=== PATIENT | female | born 1995 | race Caucasian/White ===

== ENCOUNTER 2017-02-10 19:41 | Emergency (ER) | payer BC ==
[~2017-02-10] VITALS: Ht 172.7 cm; Wt 124.1 kg
[~2017-02-10 19:41] MED LIST: CEFTIN 250250 MG/TAB PO; CIPRO 250MG TA250 MG PO; CIPRO 500MG TA500 MG PO; LEVAQUIN 250MG250 MG PO; LEXAPRO 5MG5 MG; LORTAB 5/500 501 TAB PO; MACROBID 1100 MG/CAP PO; MELATONIN5 M1 SL; MERIBIN5 MG; NO HOME MEDICATIONS; NORCO 325 MG-51 TAB PO; OMNICEF 300MG300 MG PO; PERCOCET 325 MG1 TA2 PO; PHENERGAN 25 TA25 MG PO; PHENERGAN25 MG RC; PYRIDIUM 100MG100 MG; PYRIDIUM200 M1 PO; RAPAFLO4 MG PO; TOPAMAX 25MG25 M1 PO; VOLTAREN 75 DR75 MG PO; YASMIN 3 MG-0.01 TAB PO; ZOFRAN ODT4 MG PO; ZOLOFT 50MG50 MG PO
[2017-02-10 19:43] VITALS: TEMP 98
[2017-02-10 20:26] LABS: BASO # 0.1 (0.0-0.2); BASO % 0.8 % (0.0-2.0); EOS # 0.1 (0.0-0.7); EOS % 1.8 % (0-4.0); GRAN # 4.4 (1.4-6.5); GRAN % 56.9 % (42.2-75.2); HEMATOCRIT 46.9 % (37.0-47.0); HEMOGLOBIN 15.6 g/dl (12.5-16.0); LYMPH # 2.5 (1.2-3.4); LYMPH % 33.1 % (20.0-51.0); MEAN CELL VOLUME 96 fl (80.0-100.0); MEAN CORPUSCULAR HEMOGLOBIN 32 pg (27.0-31.0); MEAN CORPUSCULAR HGB CONC 33 g/dl (33.0-37.0); MONO # 0.5 (0.1-0.6); MONO % 7.1 % (1.7-9.3); PLATELET COUNT 208 K/mm3 (130-400); RED BLOOD COUNT 4.87 M/mm3 (4.10-5.30); REDCELL DISTRIBUTION WIDTH-CV 12.4 % (11.5-14.5); WHITE BLOOD COUNT 7.6 K/mm3 (4.8-10.8)
[2017-02-10 20:29] LABS: PH 6 (5-8); URINE APPEARANCE Clear; URINE BACTERIA Rare /hpf; URINE BILIRUBIN Negative (NEGATIVE); URINE BLOOD 3+ (NEGATIVE); URINE COLOR Straw; URINE GLUCOSE Negative (NEGATIVE); URINE KETONE Negative (NEGATIVE); URINE RBC None Seen /hpf; URINE UROBILINOGEN Negative (NEGATIVE)
[2017-02-10 20:35] LABS: ADJUSTED CALCIUM 8.9 mg/dL (8.4-10.2); ALBUMIN 4.9 gm/dL (3.5-5.0); BILIRUBIN,TOTAL 0.9 mg/dL (0.0-1.0); CALCIUM 9.6 mg/dL (8.4-10.2); CREATININE, serum 0.59 mg/dL (0.52-1.25); POTASSIUM 3.4 mmol/L (3.4-5.0); TOTAL PROTEIN 7.9 gm/dL (6.4-8.2)
[2017-02-10] MEDS ORDERED: ZOFRAN 4MG T4 MG/TAB PO (21:41)
[2017-02-10] MEDS ORDERED: NORCO 325 MG-51 TAB PO (21:41)
[2017-02-10 22:28] VITALS: BP 102/71; PULSE 73
== END 2017-02-10 22:28 | disposition home or self-care (01) ==
LOC: COL.ER 19:41
PROVIDERS: Emergency Medicine
DX: N20.1 Calculus of ureter (principal); Z87.442 Personal history of urinary calculi
CPT/HCPCS: J1170; J1885; J2405; J7030

== ENCOUNTER 2017-02-13 16:02 | Emergency (ER) | payer BC ==
[~2017-02-13] VITALS: Ht 172.7 cm; Wt 124.1 kg
[~2017-02-13 16:02] MED LIST changes: +ZOFRAN 4MG T4 MG/TAB PO
[2017-02-13 16:04] VITALS: TEMP 97.9
[2017-02-13 16:39] LABS: BASO % 0.5 % (0.0-2.0); EOS # 0.2 (0.0-0.7); EOS % 2.2 % (0-4.0); GRAN # 4.5 (1.4-6.5); GRAN % 60.7 % (42.2-75.2); HEMATOCRIT 45.1 % (37.0-47.0); HEMOGLOBIN 15.5 g/dl (12.5-16.0); LYMPH # 2.2 (1.2-3.4); LYMPH % 29.6 % (20.0-51.0); MEAN CELL VOLUME 92 fl (80.0-100.0); MEAN CORPUSCULAR HEMOGLOBIN 32 pg (27.0-31.0); MEAN CORPUSCULAR HGB CONC 34 g/dl (33.0-37.0); MEAN PLATELET VOLUME 10.2 fl (7.4-10.4); MONO # 0.5 (0.1-0.6); MONO % 6.7 % (1.7-9.3); PLATELET COUNT 225 K/mm3 (130-400); RED BLOOD COUNT 4.88 M/mm3 (4.10-5.30); REDCELL DISTRIBUTION WIDTH-CV 12.3 % (11.5-14.5); WHITE BLOOD COUNT 7.4 K/mm3 (4.8-10.8)
[2017-02-13 16:52] LABS: ADJUSTED CALCIUM 9.2 mg/dL (8.4-10.2); ALBUMIN 4.8 gm/dL (3.5-5.0); BILIRUBIN,TOTAL 0.8 mg/dL (0.0-1.0); CALCIUM 9.8 mg/dL (8.4-10.2); CREATININE, serum 0.65 mg/dL (0.52-1.25); POTASSIUM 3.6 mmol/L (3.4-5.0); TOTAL PROTEIN 7.9 gm/dL (6.4-8.2)
[2017-02-13 17:26] LABS: PH 6 (5-8); URINE APPEARANCE Hazy; URINE BACTERIA Rare /hpf; URINE BILIRUBIN Negative (NEGATIVE); URINE BLOOD Negative (NEGATIVE); URINE COLOR Yellow; URINE GLUCOSE Negative (NEGATIVE); URINE KETONE Negative (NEGATIVE); URINE UROBILINOGEN Negative (NEGATIVE)
[2017-02-13 18:08] VITALS: BP 117/88; PULSE 64
[2017-02-13] MEDS ORDERED: CIPRO 500MG TA500 MG PO (18:16)
== END 2017-02-13 18:22 | disposition home or self-care (01) ==
LOC: COL.ER 16:02
PROVIDERS: Emergency Medicine
DX: N20.0 Calculus of kidney (principal); Z87.442 Personal history of urinary calculi; F17.210 Nicotine dependence, cigarettes, uncomplicated; N39.0 Urinary tract infection, site not specified
CPT/HCPCS: J2765; J3010; J7030

== ENCOUNTER → 2017-08-23 | Outpatient (CLI) | payer BC | LOC: COL.RAD 13:29 | DX: R22.1 Localized swelling, mass and lump, neck (principal) ==

== ENCOUNTER 2017-12-21 12:55 | Emergency (ER) | payer BC ==
[~2017-12-21] VITALS: Ht 172.7 cm; Wt 112.3 kg
[~2017-12-21 12:55] MED LIST changes: +00186-0372-20 IH; +DESYREL 50MG50 MG PO; +MILLIPRED DP5 MG; +PYRIDIUM 100MG100 MG PO; +TOPAMAX50 MG PO; +WELLBUTRIN XL150 MG PO; +ZARAH PO
[2017-12-21 13:02] VITALS: BP 131/80; PULSE 111; TEMP 96.8
[2017-12-21 14:06] LABS: COLLECTION METHOD CLEAN CATCH
[2017-12-21 14:15] LABS: MUCOUS Present /lpf; PH 6 (5-8); SQUAMOUS EPITHELIAL 20-50 /hpf; URINE APPEARANCE Cloudy; URINE BACTERIA None Seen /hpf; URINE BILIRUBIN Negative (NEGATIVE); URINE BLOOD 3+ (NEGATIVE); URINE COLOR Yellow; URINE GLUCOSE Negative (NEGATIVE); URINE KETONE Negative (NEGATIVE); URINE LEUKOCYTE ESTERASE Trace (NEGATIVE); URINE NITRATE Negative (NEGATIVE); URINE PROTEIN(semi-quant) 1+ (NEGATIVE); URINE RBC >50 /hpf
[2017-12-21] MEDS ORDERED: TORADOL 10MG TA10 MG PO (15:36)
[2017-12-21] MEDS ORDERED: CEFTIN500 MG PO (15:36)
== END 2017-12-21 15:51 | disposition home or self-care (01) ==
LOC: COL.ER 12:55
PROVIDERS: Nurse Practitioner
DX: N20.1 Calculus of ureter (principal); F32.9 Major depressive disorder, single episode, unspecified; F41.9 Anxiety disorder, unspecified; E28.2 Polycystic ovarian syndrome; Z87.442 Personal history of urinary calculi
CPT/HCPCS: J0696; J1885; J2270; J2405; J7030

== ENCOUNTER → 2018-01-13 | Outpatient (CLI) | payer BC ==
[~2018-01-13] MED LIST changes: +CEFTIN500 MG PO; +TORADOL 10MG TA10 MG PO
== END ==
LOC: COL.RAD 01-09 08:00
DX: N20.0 Calculus of kidney (principal)
CPT/HCPCS: Q9967

== ENCOUNTER → 2018-03-28 | Outpatient (CLI) | payer OTHER | LOC: COL.RAD 08:15 | DX: M23.92 Unspecified internal derangement of left knee (principal) ==

== ENCOUNTER 2018-08-19 15:36 | Emergency (ER) | payer BC ==
[~2018-08-19] VITALS: Ht 172.7 cm; Wt 100.0 kg
[2018-08-19 15:43] VITALS: TEMP 97.4
[2018-08-19] MEDS ORDERED: SYEDA 3 MG-0.031 TAB PO (15:55)
[2018-08-19] MEDS ORDERED: ZOLOFT 50MG50 MG PO (15:56)
[2018-08-19] MEDS ORDERED: ATIVAN 0.50.5 MG/TAB PO (15:56)
[2018-08-19] MEDS ORDERED: AMBIEN 5MG TABLE5 MG PO (15:56)
[2018-08-19] MEDS ORDERED: DOXYCYCLINE HY100 MG PO (15:56)
[2018-08-19] MEDS ORDERED: FIORICET 325 MG1 TA1 PO (16:03)
[2018-08-19 16:05] LABS: COLLECTION METHOD CLEAN CATCH
[2018-08-19 16:22] LABS: MUCOUS Present /lpf; PH 6 (5-8); URINE APPEARANCE Hazy; URINE BACTERIA Rare /hpf; URINE BILIRUBIN Negative (NEGATIVE); URINE BLOOD 3+ (NEGATIVE); URINE COLOR Yellow; URINE GLUCOSE Negative (NEGATIVE); URINE KETONE Negative (NEGATIVE); URINE LEUKOCYTE ESTERASE Negative (NEGATIVE); URINE NITRATE Negative (NEGATIVE); URINE PROTEIN(semi-quant) Negative (NEGATIVE); URINE UROBILINOGEN Negative (NEGATIVE)
[2018-08-19 16:35] LABS: BASO # 0.1 (0.0-0.2); BASO % 0.6 % (0.0-2.0); EOS # 0.3 (0.0-0.7); EOS % 3.2 % (0-4.0); GRAN # 5.4 (1.4-6.5); GRAN % 62.4 % (42.2-75.2); HEMATOCRIT 45.8 % (37.0-47.0); HEMOGLOBIN 15.4 g/dl (12.5-16.0); LYMPH # 2.3 (1.2-3.4); MEAN CELL VOLUME 95 fl (80.0-100.0); MEAN CORPUSCULAR HEMOGLOBIN 32 pg (27.0-31.0); MEAN CORPUSCULAR HGB CONC 34 g/dl (33.0-37.0); MEAN PLATELET VOLUME 9.9 fl (7.4-10.4); MONO # 0.6 (0.1-0.6); MONO % 6.5 % (1.7-9.3); PLATELET COUNT 253 K/mm3 (130-400); REDCELL DISTRIBUTION WIDTH-CV 12.4 % (11.5-14.5)
[2018-08-19 16:50] LABS: ALBUMIN 4.7 gm/dL (3.5-5.0); BILIRUBIN,TOTAL 0.3 mg/dL (0.0-1.0); C-REACTIVE PROTEIN 1.2 mg/dL (0.0-0.9); CALCIUM 9.9 mg/dL (8.4-10.2); CREATININE, serum 0.81 mg/dL (0.52-1.25); POTASSIUM 3.8 mmol/L (3.4-5.0)
[2018-08-19 18:11] VITALS: BP 141/78; PULSE 79
== END 2018-08-19 18:13 | disposition home or self-care (01) ==
LOC: COL.ER 15:36
PROVIDERS: Emergency Medicine
DX: R10.9 Unspecified abdominal pain (principal); F17.210 Nicotine dependence, cigarettes, uncomplicated; Z87.442 Personal history of urinary calculi
CPT/HCPCS: J1170; J1885; J2405; J7030; Q9967

== ENCOUNTER → 2018-09-12 | Outpatient (CLI) | payer BC ==
[~2018-09-12] MED LIST changes: +AMBIEN 5MG TABLE5 MG PO; +ATIVAN 0.50.5 MG/TAB PO; +DOXYCYCLINE HY100 MG PO; +FIORICET 325 MG1 TA1 PO; +SYEDA 3 MG-0.031 TAB PO
== END ==
LOC: COL.RAD 07:25
DX: M47.816 Spondylosis without myelopathy or radiculopathy, lumbar region (principal)

== ENCOUNTER 2018-12-07 22:32 | Emergency (ER) | payer BC ==
[~2018-12-07] VITALS: Ht 172.7 cm; Wt 100.0 kg
[2018-12-07 23:03] LABS: COLLECTION METHOD CLEAN CATCH
[2018-12-07 23:10] LABS: AMORPHOUS CRYSTAL Present /uL; MUCOUS Present /lpf; PH 7 (5-8); URINE APPEARANCE Turbid; URINE BACTERIA None Seen /hpf; URINE BILIRUBIN Negative (NEGATIVE); URINE BLOOD Negative (NEGATIVE); URINE COLOR Yellow; URINE GLUCOSE Negative (NEGATIVE); URINE KETONE Negative (NEGATIVE); URINE LEUKOCYTE ESTERASE Trace (NEGATIVE); URINE NITRATE Negative (NEGATIVE); URINE PROTEIN(semi-quant) Negative (NEGATIVE); URINE RBC 0-2 /hpf; URINE UROBILINOGEN Negative (NEGATIVE)
[2018-12-07 23:48] LABS: BASO # 0.1 (0.0-0.2); BASO % 0.7 % (0.0-2.0); EOS # 0.3 (0.0-0.7); EOS % 4.4 % (0-4.0); GRAN # 3.8 (1.4-6.5); GRAN % 53.7 % (42.2-75.2); HEMATOCRIT 43.6 % (37.0-47.0); HEMOGLOBIN 14.7 g/dl (12.5-16.0); LYMPH # 2.2 (1.2-3.4); MEAN CELL VOLUME 97 fl (80.0-100.0); MEAN CORPUSCULAR HEMOGLOBIN 33 pg (27.0-31.0); MEAN CORPUSCULAR HGB CONC 34 g/dl (33.0-37.0); MEAN PLATELET VOLUME 10.6 fl (7.4-10.4); MONO # 0.7 (0.1-0.6); MONO % 9.9 % (1.7-9.3); PLATELET COUNT 184 K/mm3 (130-400); RED BLOOD COUNT 4.49 M/mm3 (4.10-5.30); REDCELL DISTRIBUTION WIDTH-CV 12.1 % (11.5-14.5)
[2018-12-08] VITALS: TEMP 97.2
[2018-12-08] LABS: ALBUMIN 4.2 gm/dL (3.5-5.0); BILIRUBIN,TOTAL 0.3 mg/dL (0.0-1.0); CALCIUM 9.4 mg/dL (8.4-10.2); CREATININE, serum 0.68 mg/dL (0.52-1.25); POTASSIUM 3.8 mmol/L (3.4-5.0); TOTAL PROTEIN 7.2 gm/dL (6.4-8.2)
[2018-12-08 01:18] VITALS: BP 110/73; PULSE 67
== END 2018-12-08 01:21 | disposition home or self-care (01) ==
LOC: COL.ER 22:32
PROVIDERS: Emergency Medicine
DX: R10.9 Unspecified abdominal pain (principal); Z87.442 Personal history of urinary calculi
CPT/HCPCS: J1885; J2270; J2405; J7030; Q9967

== ENCOUNTER → 2019-06-23 | Outpatient (CLI) | payer BC | LOC: BHSO 10:54 | DX: F43.10 Post-traumatic stress disorder, unspecified (principal) ==

== ENCOUNTER → 2019-07-08 | Outpatient (CLI) | payer BC | LOC: BHSO 10:54 | DX: F43.10 Post-traumatic stress disorder, unspecified (principal) ==

== ENCOUNTER → 2019-07-15 | Outpatient (CLI) | payer BC | LOC: BHSO 10:05 | DX: F41.1 Generalized anxiety disorder (principal) ==

== ENCOUNTER → 2019-08-12 | Outpatient (CLI) | payer BC | LOC: BHSO 10:52 | DX: F41.1 Generalized anxiety disorder (principal) ==

== ENCOUNTER 2019-10-15 17:02 | Emergency (ER) | payer SELFPAY ==
[~2019-10-15] VITALS: Ht 172.7 cm; Wt 95.5 kg
[2019-10-15 17:11] VITALS: TEMP 97.5
[2019-10-15 17:47] LABS: COLLECTION METHOD CLEAN CATCH
[2019-10-15 17:58] LABS: MUCOUS Present /lpf; PH 6 (5-8); SQUAMOUS EPITHELIAL 20-50 /hpf; URINE APPEARANCE Cloudy; URINE BACTERIA Rare /hpf; URINE BILIRUBIN Negative (NEGATIVE); URINE BLOOD Negative (NEGATIVE); URINE COLOR Yellow; URINE GLUCOSE Negative (NEGATIVE); URINE KETONE Negative (NEGATIVE); URINE LEUKOCYTE ESTERASE 2+ (NEGATIVE); URINE NITRATE Negative (NEGATIVE); URINE PROTEIN(semi-quant) Negative (NEGATIVE)
[2019-10-15 18:56] LABS: BASO % 0.7 % (0.0-2.0); EOS % 0.7 % (0-4.0); GRAN # 3.7 (1.4-6.5); GRAN % 80.7 % (42.2-75.2); HEMOGLOBIN 14.8 g/dl (12.5-16.0); LYMPH # 0.5 (1.2-3.4); LYMPH % 10.7 % (20.0-51.0); MEAN CELL VOLUME 96 fl (80.0-100.0); MEAN CORPUSCULAR HEMOGLOBIN 33 pg (27.0-31.0); MEAN CORPUSCULAR HGB CONC 34 g/dl (33.0-37.0); MONO # 0.3 (0.1-0.6); PLATELET COUNT 157 K/mm3 (130-400); RED BLOOD COUNT 4.49 M/mm3 (4.10-5.30); REDCELL DISTRIBUTION WIDTH-CV 12.7 % (11.5-14.5)
[2019-10-15 19:03] LABS: ALBUMIN 4.6 gm/dL (3.5-5.0); BILIRUBIN,TOTAL 0.5 mg/dL (0.0-1.0); CALCIUM 9.7 mg/dL (8.4-10.2); CREATININE, serum 0.67 (0.52-1.25); POTASSIUM 3.7 mmol/L (3.4-5.0); TOTAL PROTEIN 7.8 gm/dL (6.4-8.2)
[2019-10-15] MEDS ORDERED: NORCO 325 MG-51 TAB PO (19:26)
[2019-10-15] MEDS ORDERED: CEFTIN500 MG PO (19:26)
[2019-10-15 20:50] VITALS: BP 108/57; PULSE 86
== END 2019-10-15 20:50 | disposition home or self-care (01) ==
LOC: COL.ER 17:02
PROVIDERS: Emergency Medicine
DX: N39.0 Urinary tract infection, site not specified (principal); F32.9 Major depressive disorder, single episode, unspecified; G43.909 Migraine, unspecified, not intractable, without status migrainosus; Z87.442 Personal history of urinary calculi; Z88.0 Allergy status to penicillin; F17.210 Nicotine dependence, cigarettes, uncomplicated; Z88.1 Allergy status to other antibiotic agents
CPT/HCPCS: A4216; J0696; J1885; J2270; J2405; J7030

== ENCOUNTER 2020-04-06 15:40 | Emergency (ER) | payer SELFPAY ==
[~2020-04-06] VITALS: Ht 172.7 cm; Wt 104.5 kg
[2020-04-06 15:57] VITALS: TEMP 97.5
[2020-04-06 16:19] LABS: COLLECTION METHOD CLEAN CATCH
[2020-04-06 16:41] LABS: MUCOUS Present /lpf; PH 6 (5-8); URINE APPEARANCE Clear; URINE BACTERIA Rare /hpf; URINE BILIRUBIN Negative (NEGATIVE); URINE BLOOD 3+ (NEGATIVE); URINE COLOR Yellow; URINE GLUCOSE Negative (NEGATIVE); URINE KETONE Negative (NEGATIVE); URINE LEUKOCYTE ESTERASE Trace (NEGATIVE); URINE NITRATE Negative (NEGATIVE); URINE PROTEIN(semi-quant) Negative (NEGATIVE); URINE RBC 0-2 /hpf; URINE UROBILINOGEN Negative (NEGATIVE)
[2020-04-06] MEDS ORDERED: CIPRO 500MG TA500 MG PO (17:35)
[2020-04-06] MEDS ORDERED: ZOFRAN 4MG T4 MG/TAB PO (17:35)
[2020-04-06 18:04] VITALS: BP 120/80; PULSE 67
== END 2020-04-06 18:06 | disposition home or self-care (01) ==
LOC: COL.ER 15:40
PROVIDERS: Nurse Practitioner Primary Care
DX: N39.0 Urinary tract infection, site not specified (principal); F32.9 Major depressive disorder, single episode, unspecified; F41.9 Anxiety disorder, unspecified; F17.290 Nicotine dependence, other tobacco product, uncomplicated
CPT/HCPCS: J0696; J1170; J2270; J2405; J7030

== ENCOUNTER 2020-07-02 06:57 | Emergency (ER) | payer SELFPAY ==
[~2020-07-02] VITALS: Ht 172.7 cm; Wt 104.5 kg
[2020-07-02 07:14] VITALS: TEMP 97.2
[2020-07-02 07:59] LABS: BASO # 0.1 (0.0-0.2); BASO % 0.8 % (0.0-2.0); EOS # 0.2 (0.0-0.7); EOS % 2.3 % (0-4.0); GRAN # 4.2 (1.4-6.5); GRAN % 64.2 % (42.2-75.2); HEMATOCRIT 42.1 % (37.0-47.0); HEMOGLOBIN 14.5 g/dl (12.5-16.0); LYMPH # 1.6 (1.2-3.4); MEAN CELL VOLUME 94 fl (80.0-100.0); MEAN CORPUSCULAR HEMOGLOBIN 32 pg (27.0-31.0); MEAN CORPUSCULAR HGB CONC 34 g/dl (33.0-37.0); MEAN PLATELET VOLUME 10.5 fl (7.4-10.4); MONO # 0.6 (0.1-0.6); MONO % 8.4 % (1.7-9.3); PLATELET COUNT 186 K/mm3 (130-400); RED BLOOD COUNT 4.48 M/mm3 (4.10-5.30); REDCELL DISTRIBUTION WIDTH-CV 12.6 % (11.5-14.5)
[2020-07-02 08:08] LABS: ALBUMIN 4.4 gm/dL (3.5-5.0); BILIRUBIN,TOTAL 0.6 mg/dL (0.0-1.0); CALCIUM 8.9 mg/dL (8.4-10.2); CREATININE, serum 0.59 (0.52-1.25); POTASSIUM 4.5 mmol/L (3.4-5.0); TOTAL PROTEIN 7.6 gm/dL (6.4-8.2)
[2020-07-02 09:06] LABS: COLLECTION METHOD CLEAN CATCH
[2020-07-02] MEDS ORDERED: NEXIUM 20MG20 MG PO (09:17)
[2020-07-02] MEDS ORDERED: PHENERGAN 25 TA25 MG PO (09:17)
[2020-07-02 09:19] LABS: MUCOUS Present /lpf; PH 6 (5-8); URINE APPEARANCE Hazy; URINE BACTERIA None Seen /hpf; URINE BILIRUBIN Negative (NEGATIVE); URINE BLOOD Negative (NEGATIVE); URINE COLOR Yellow; URINE GLUCOSE Negative (NEGATIVE); URINE KETONE Negative (NEGATIVE); URINE LEUKOCYTE ESTERASE Negative (NEGATIVE); URINE NITRATE Negative (NEGATIVE); URINE PROTEIN(semi-quant) Negative (NEGATIVE); URINE UROBILINOGEN Negative (NEGATIVE)
[2020-07-02 10:51] VITALS: BP 118/77; PULSE 77
== END 2020-07-02 10:55 | disposition home or self-care (01) ==
LOC: COL.ER 06:57
PROVIDERS: Emergency Medicine
DX: R10.13 Epigastric pain (principal); Z32.02 Encounter for pregnancy test, result negative; Z79.3 Long term (current) use of hormonal contraceptives
CPT/HCPCS: C9113; J1170; J2550; J7030

== ENCOUNTER 2020-07-05 02:47 | Emergency (ER) | payer SELFPAY ==
[~2020-07-05] VITALS: Ht 172.7 cm; Wt 104.5 kg
[~2020-07-05 02:47] MED LIST changes: +NEXIUM 20MG20 MG PO
[2020-07-05 02:51] VITALS: BP 127/87; TEMP 97.7
[2020-07-05 03:23] LABS: BASO # 0.1 (0.0-0.2); BASO % 0.7 % (0.0-2.0); EOS # 0.3 (0.0-0.7); EOS % 3.9 % (0-4.0); GRAN # 3.1 (1.4-6.5); GRAN % 46.6 % (42.2-75.2); HEMATOCRIT 40.9 % (37.0-47.0); HEMOGLOBIN 13.9 g/dl (12.5-16.0); LYMPH # 2.6 (1.2-3.4); LYMPH % 38.9 % (20.0-51.0); MEAN CELL VOLUME 95 fl (80.0-100.0); MEAN CORPUSCULAR HEMOGLOBIN 32 pg (27.0-31.0); MEAN CORPUSCULAR HGB CONC 34 g/dl (33.0-37.0); MEAN PLATELET VOLUME 9.9 fl (7.4-10.4); MONO # 0.7 (0.1-0.6); MONO % 9.8 % (1.7-9.3); PLATELET COUNT 180 K/mm3 (130-400); RED BLOOD COUNT 4.31 M/mm3 (4.10-5.30); REDCELL DISTRIBUTION WIDTH-CV 12.6 % (11.5-14.5)
[2020-07-05 03:38] LABS: BILIRUBIN,TOTAL 0.3 mg/dL (0.0-1.0); CALCIUM 9.1 mg/dL (8.4-10.2); CREATININE, serum 0.69 (0.52-1.25); POTASSIUM 3.7 mmol/L (3.4-5.0); TOTAL PROTEIN 6.8 gm/dL (6.4-8.2)
[2020-07-05] MEDS ORDERED: NORCO 325 MG-51 TAB PO (07:14)
[2020-07-05] MEDS ORDERED: ZOFRAN 4MG T4 MG/TAB PO (07:14)
[2020-07-05 09:00] VITALS: PULSE 61
== END 2020-07-05 09:00 | disposition home or self-care (01) ==
LOC: COL.ER 02:47
PROVIDERS: Emergency Medicine
DX: R10.13 Epigastric pain (principal); R10.11 Right upper quadrant pain; F41.9 Anxiety disorder, unspecified; E66.9 Obesity, unspecified; F43.10 Post-traumatic stress disorder, unspecified; F17.290 Nicotine dependence, other tobacco product, uncomplicated; Z32.02 Encounter for pregnancy test, result negative; Z68.35 Body mass index [BMI] 35.0-35.9, adult; Z87.442 Personal history of urinary calculi; Z88.0 Allergy status to penicillin; Z88.2 Allergy status to sulfonamides; Z88.8 Allergy status to other drugs, medicaments and biological substances
CPT/HCPCS: J1170; J1885; J2270; J2405; J7030

== ENCOUNTER 2020-07-15 08:07 | Day surgery (SDC) | payer OTHER ==
[~2020-07-15] VITALS: Ht 172.7 cm; Wt 107.3 kg
[2020-07-15 08:31] VITALS: BP 127/70; PULSE 87; TEMP 98.1
[2020-07-15] MEDS ORDERED: ZOLOFT 100MG100 MG PO (08:33)
[2020-07-15] MEDS ORDERED: AMBIEN 10MG10 MG PO (08:34)
[2020-07-15] MEDS ORDERED: TOPAMAX 100MG100 M1 PO (08:35)
[2020-07-15] MEDS ORDERED: PERCOCET 325 MG1 TA2 PO ×2 (08:36→11:43)
[2020-07-15 12:10] VITALS: BP 99/65; PULSE 83; TEMP 98.5
--- NOTE | 2020-07-15 12:10 | NUR ---
The patient arrived back to [facility] [facility] from the recovery room at this time. The patient appears alert and oriented and denies any pain or nausea at this time. The patient agrees to try some toast and apple juice at this time. The patient's post operative vital sings were started at this time. The patient's mother is at her bedside at this time. Call light within reach. Will continue to monitor the patient.
[2020-07-15 12:25] VITALS: BP 104/61; PULSE 50
--- NOTE | 2020-07-15 12:25 | NUR ---
The patient appears to be tolerating the toast and juice well. The patient has three bandaids to her abdomen that appear clean, dry and intact. The patient's mother remains at her bedside at this time. Vital signs appear stable. Will continue to monitor the patient.
--- NOTE | 2020-07-15 12:35 | NUR ---
The patient was given a PRN dose of Percocet 1 tab at this time for continued pain relief. The patient's mother remains at her bedside. Vital signs appear stable. Call light is within reach.
[2020-07-15 12:39] VITALS: TEMP 97.4
[2020-07-15 12:40] VITALS: BP 102/55; PULSE 67
[2020-07-15 12:55] VITALS: BP 104/52; PULSE 61
--- NOTE | 2020-07-15 12:55 | NUR ---
The patient ambulated to the bathroom with stand by assistance of one nurse and appeared to tolerate the activity well. The nurse instructed the patient that if she is able to void that she can get dressed and notify the staff when she is ready to review her discharge paperwork.
--- NOTE | 2020-07-15 13:15 | NUR ---
Discharge instructions were reviewed with the patient and her mother at this time. They both verbalized understanding and have no questions for the nurse at this time. The patient's IV to her left hand was removed and a pressure dressing was applied to the site. The patient is dressed and ready to be escorted out.
--- NOTE | 2020-07-15 13:20 | NUR ---
The patient was escorted out via wheelchair to private vehicle by JOHANNE Shirley. The patient's belongings and discharge paperwork were sent with her. The patient's mother is present to drive her home.
== END 2020-07-15 13:20 | disposition home or self-care (01) ==
LOC: SDCO 08:07
DX: K80.10 Calculus of gallbladder with chronic cholecystitis without obstruction (principal); F17.210 Nicotine dependence, cigarettes, uncomplicated; Z88.0 Allergy status to penicillin; Z88.2 Allergy status to sulfonamides; Z88.8 Allergy status to other drugs, medicaments and biological substances; E28.2 Polycystic ovarian syndrome; G89.29 Other chronic pain; F41.9 Anxiety disorder, unspecified; G43.909 Migraine, unspecified, not intractable, without status migrainosus; F32.9 Major depressive disorder, single episode, unspecified; M19.90 Unspecified osteoarthritis, unspecified site; Z87.440 Personal history of urinary (tract) infections; Z20.828 Contact with and (suspected) exposure to other viral communicable diseases
CPT/HCPCS: J0690; J1100; J1885; J2405; J2704; J2710; J3010; J7120

== ENCOUNTER 2020-07-18 11:04 | Emergency (ER) | payer OTHER ==
[~2020-07-18] VITALS: Ht 172.7 cm; Wt 107.7 kg
[~2020-07-18 11:04] MED LIST changes: +AMBIEN 10MG10 MG PO; +TOPAMAX 100MG100 M1 PO; +ZOLOFT 100MG100 MG PO
[2020-07-18 11:23] VITALS: BP 130/91; TEMP 98
[2020-07-18 16:34] VITALS: PULSE 75
== END 2020-07-18 16:34 | disposition home or self-care (01) ==
LOC: COL.ER 11:04
DX: R10.11 Right upper quadrant pain (principal); Z90.49 Acquired absence of other specified parts of digestive tract; F41.9 Anxiety disorder, unspecified; F32.9 Major depressive disorder, single episode, unspecified; F17.210 Nicotine dependence, cigarettes, uncomplicated; G47.00 Insomnia, unspecified; Z88.2 Allergy status to sulfonamides; Z88.0 Allergy status to penicillin; Z88.8 Allergy status to other drugs, medicaments and biological substances; Z79.3 Long term (current) use of hormonal contraceptives
CPT/HCPCS: J1885; J2270

== ENCOUNTER 2020-11-02 00:15 | Emergency (ER) | payer OTHER ==
[~2020-11-02] VITALS: Ht 172.7 cm; Wt 109.1 kg
[2020-11-02 00:25] VITALS: TEMP 97.8
[2020-11-02 00:51] LABS: COLLECTION METHOD CLEAN CATCH
[2020-11-02 00:58] LABS: MUCOUS Present /lpf; PH 6 (5-8); URINE APPEARANCE Cloudy; URINE BACTERIA None Seen /hpf; URINE BILIRUBIN Negative (NEGATIVE); URINE BLOOD Negative (NEGATIVE); URINE COLOR Yellow; URINE GLUCOSE Negative (NEGATIVE); URINE KETONE Negative (NEGATIVE); URINE LEUKOCYTE ESTERASE Trace (NEGATIVE); URINE NITRATE Negative (NEGATIVE); URINE PROTEIN(semi-quant) 1+ (NEGATIVE); URINE RBC 0-2 /hpf; URINE UROBILINOGEN >=4.0 mg/dL (NEGATIVE)
[2020-11-02] MEDS ORDERED: NORCO 325 MG-51 TAB PO (01:32)
[2020-11-02] MEDS ORDERED: ZOFRAN ODT4 MG PO (01:32)
[2020-11-02] MEDS ORDERED: TORADOL 10MG TA10 MG PO (01:32)
[2020-11-02 02:38] VITALS: BP 106/59; PULSE 84
== END 2020-11-02 02:38 | disposition home or self-care (01) ==
LOC: COL.ER 00:15
PROVIDERS: Nurse Practitioner
DX: N20.0 Calculus of kidney (principal); N39.0 Urinary tract infection, site not specified; Z32.02 Encounter for pregnancy test, result negative; Z88.0 Allergy status to penicillin; Z88.2 Allergy status to sulfonamides; Z88.8 Allergy status to other drugs, medicaments and biological substances
CPT/HCPCS: J1170; J1885; J2270; J2405; J7030

== ENCOUNTER 2021-03-24 18:16 | Emergency (ER) | payer BC ==
[~2021-03-24] VITALS: Ht 172.7 cm; Wt 113.6 kg
[2021-03-24 19:11] VITALS: TEMP 97.7
[2021-03-24 19:49] LABS: BASO # 0.1 (0.0-0.2); BASO % 0.7 % (0.0-2.0); EOS # 0.2 (0.0-0.7); EOS % 1.8 % (0-4.0); GRAN % 56.9 % (42.2-75.2); HEMOGLOBIN 15.7 g/dl (12.5-16.0); LYMPH # 2.9 (1.2-3.4); LYMPH % 33.1 % (20.0-51.0); MEAN CELL VOLUME 92 fl (80.0-100.0); MEAN CORPUSCULAR HEMOGLOBIN 32 pg (27.0-31.0); MEAN CORPUSCULAR HGB CONC 35 g/dl (33.0-37.0); MEAN PLATELET VOLUME 10.3 fl (7.4-10.4); MONO # 0.7 (0.1-0.6); MONO % 7.3 % (1.7-9.3); PLATELET COUNT 225 K/mm3 (130-400); REDCELL DISTRIBUTION WIDTH-CV 12.5 % (11.5-14.5)
[2021-03-24 19:53] LABS: COLLECTION METHOD CLEAN CATCH
[2021-03-24 20:02] LABS: ALBUMIN 4.9 gm/dL (3.5-5.0); BILIRUBIN,TOTAL 0.5 mg/dL (0.0-1.0); CALCIUM 9.7 mg/dL (8.4-10.2); CREATININE, serum 0.59 (0.52-1.25); POTASSIUM 3.2 mmol/L (3.4-5.0); TOTAL PROTEIN 8.7 gm/dL (6.4-8.2)
[2021-03-24 20:05] LABS: AMORPHOUS CRYSTAL Present /uL; MUCOUS Present /lpf; PH 5 (5-8); SQUAMOUS EPITHELIAL 20-50 /hpf; URINE APPEARANCE Cloudy; URINE BACTERIA None Seen /hpf; URINE BILIRUBIN Negative (NEGATIVE); URINE BLOOD Negative (NEGATIVE); URINE COLOR Yellow; URINE GLUCOSE Negative (NEGATIVE); URINE KETONE Negative (NEGATIVE); URINE LEUKOCYTE ESTERASE 1+ (NEGATIVE); URINE NITRATE Negative (NEGATIVE); URINE PROTEIN(semi-quant) Negative (NEGATIVE)
[2021-03-24] MEDS ORDERED: FLEXERIL 1010 MG/TAB PO (21:42)
[2021-03-24] MEDS ORDERED: NORCO 325 MG-51 TAB PO (21:42)
[2021-03-24] MEDS ORDERED: CEFTIN 250250 MG/TAB PO (21:42)
[2021-03-24 22:00] VITALS: BP 130/76; PULSE 74
== END 2021-03-24 22:00 | disposition home or self-care (01) ==
LOC: COL.ER 18:16
PROVIDERS: Emergency Medicine
DX: M62.830 Muscle spasm of back (principal); N39.0 Urinary tract infection, site not specified; F32.9 Major depressive disorder, single episode, unspecified; F41.9 Anxiety disorder, unspecified; F17.290 Nicotine dependence, other tobacco product, uncomplicated; Z90.49 Acquired absence of other specified parts of digestive tract; Z87.442 Personal history of urinary calculi
CPT/HCPCS: J1885; J2405; J3010; J7030; Q9967

== ENCOUNTER 2021-10-23 17:43 | Emergency (ER) | payer BC ==
[~2021-10-23] VITALS: Ht 172.7 cm; Wt 104.5 kg
[~2021-10-23 17:43] MED LIST changes: +FLEXERIL 1010 MG/TAB PO
[2021-10-23 18:49] LABS: COLLECTION METHOD CLEAN CATCH
[2021-10-23 19:06] LABS: MUCOUS Present (NOT PRESENT); PH 7 (5-8); URINE APPEARANCE Cloudy (CLEAR/HAZY); URINE BACTERIA Rare /hpf (NONE SEEN); URINE BILIRUBIN Negative (NEGATIVE); URINE BLOOD Negative (NEGATIVE); URINE COLOR Yellow (YELLOW); URINE GLUCOSE Negative (NEGATIVE); URINE KETONE Negative (NEGATIVE); URINE LEUKOCYTE ESTERASE Trace (NEGATIVE); URINE NITRATE Negative (NEGATIVE); URINE PROTEIN(semi-quant) Negative (NEGATIVE); URINE RBC 0-2 /hpf (0-2); URINE UROBILINOGEN Negative (NEGATIVE)
[2021-10-23] MEDS ORDERED: CIPRO 500MG TA500 MG PO (20:54)
[2021-10-23 21:50] VITALS: BP 132/74; PULSE 81; TEMP 98.7
[2021-10-24] MEDS ORDERED: NORCO 325 MG-51 TAB PO (14:22)
== END 2021-10-23 21:45 | disposition home or self-care (01) ==
LOC: COL.ER 17:43
PROVIDERS: Personal Emergency Response Attendant
DX: M54.50 Low back pain, unspecified (principal); F41.9 Anxiety disorder, unspecified; G47.00 Insomnia, unspecified; F17.200 Nicotine dependence, unspecified, uncomplicated; Z87.442 Personal history of urinary calculi; Z79.899 Other long term (current) drug therapy
CPT/HCPCS: J1885; J2405

== ENCOUNTER 2021-10-24 11:17 | Emergency (ER) | payer BC ==
[~2021-10-24] VITALS: Ht 172.7 cm; Wt 104.5 kg
[2021-10-24 11:36] VITALS: TEMP 98.1
[2021-10-24 12:16] LABS: BASO % 0.3 % (0.0-2.0); EOS # 0.1 K/mm3 (0.0-0.7); EOS % 1.3 % (0.0-4.0); GRAN # 6.5 K/mm3 (1.4-6.5); GRAN % 74.1 % (42.2-75.2); HEMATOCRIT 44.1 % (37.0-47.0); HEMOGLOBIN 15.4 g/dl (12.5-16.0); LYMPH # 1.4 K/mm3 (1.2-3.4); LYMPH % 15.5 % (20.0-51.0); MEAN CELL VOLUME 93 fl (80.0-100.0); MEAN CORPUSCULAR HEMOGLOBIN 33 pg (27-31); MEAN CORPUSCULAR HGB CONC 35 g/dl (33.0-37.0); MEAN PLATELET VOLUME 9.7 fl (7.4-10.4); MONO # 0.8 K/mm3 (0.1-0.6); MONO % 8.6 % (1.7-9.3); PLATELET COUNT 211 K/mm3 (130-400); RED BLOOD COUNT 4.72 M/mm3 (4.10-5.30); REDCELL DISTRIBUTION WIDTH-CV 12.9 % (11.5-14.5)
[2021-10-24 12:33] LABS: BILIRUBIN,TOTAL 0.7 mg/dL (0.2-1.2); C-REACTIVE PROTEIN 0.54 mg/dL (0.00-0.50); CALCIUM 9.2 mg/dL (8.4-10.2); CREATININE, serum 0.67 mg/dL (0.57-1.11); POTASSIUM 4.6 mmol/L (3.5-4.5); TOTAL PROTEIN 7.2 gm/dL (6.2-8.1)
[2021-10-24] MEDS ORDERED: NORCO 325 MG-51 TAB PO (14:22)
[2021-10-24 14:36] VITALS: BP 112/72; PULSE 73
== END 2021-10-24 14:37 | disposition home or self-care (01) ==
LOC: COL.ER 11:17
PROVIDERS: Emergency Medicine
DX: N83.202 Unspecified ovarian cyst, left side (principal); G43.909 Migraine, unspecified, not intractable, without status migrainosus; F41.9 Anxiety disorder, unspecified; Z87.442 Personal history of urinary calculi; Z90.49 Acquired absence of other specified parts of digestive tract; Z79.899 Other long term (current) drug therapy
CPT/HCPCS: J1885; J2405; J3010; J7030; Q9967

== ENCOUNTER 2022-06-17 15:58 | Emergency (ER) | payer OTHER ==
[~2022-06-17] VITALS: Ht 172.7 cm; Wt 104.5 kg
[2022-06-17 17:03] LABS: STREP SCREEN NEGATIVE
[2022-06-17 18:07] LABS: HEMATOCRIT 44.4 % (37.0-47.0); HEMOGLOBIN 14.9 g/dl (12.5-16.0); MEAN CELL VOLUME 96 fl (80.0-100.0); MEAN CORPUSCULAR HEMOGLOBIN 32 pg (27-31); MEAN CORPUSCULAR HGB CONC 34 g/dl (33.0-37.0); MEAN PLATELET VOLUME 10.2 fl (7.4-10.4); PLATELET COUNT 163 K/mm3 (130-400); RED BLOOD COUNT 4.63 M/mm3 (4.10-5.30); REDCELL DISTRIBUTION WIDTH-CV 12.3 % (11.5-14.5)
[2022-06-17 18:13] LABS: MONOSCREEN NEGATIVE
[2022-06-17 18:24] LABS: BILIRUBIN,TOTAL 0.9 mg/dL (0.2-1.2); CALCIUM 9.9 mg/dL (8.4-10.2); CREATININE, serum 0.73 mg/dL (0.57-1.11); POTASSIUM 3.7 mmol/L (3.5-4.5); TOTAL PROTEIN 7.9 gm/dL (6.2-8.1)
[2022-06-17 18:57] VITALS: BP 117/73; PULSE 96; TEMP 100.6
[2022-06-17 19:56] LABS: EOSINOPHIL 1 % (0-4); LYMPHOCYTE 64 % (20.0-51.0); NEUTROPHILS 3 % (42.0-75.2); PLATELET ESTIMATE NORMAL (NORMAL)
[2022-06-17 19:57] LABS: HYPOCHROMIA 1+
[2022-06-18] MEDS ORDERED: CLEOCIN HCL300 MG PO (18:24)
== END 2022-06-17 18:57 | disposition home or self-care (01) ==
LOC: COL.ER 15:58
PROVIDERS: Physician Assistant
DX: D72.819 Decreased white blood cell count, unspecified (principal); R51.9 Headache, unspecified; F17.290 Nicotine dependence, other tobacco product, uncomplicated; Z86.69 Personal history of other diseases of the nervous system and sense organs; Z20.822 Contact with and (suspected) exposure to COVID-19
CPT/HCPCS: J7030

== ENCOUNTER 2022-06-18 14:09 | Emergency (ER) | payer OTHER ==
[~2022-06-18] VITALS: Ht 172.7 cm; Wt 104.5 kg
[2022-06-18 16:41] LABS: BASO % 0.9 % (0.0-2.0); EOS % 1.3 % (0.0-4.0); GRAN # 0.1 K/mm3 (1.4-6.5); GRAN % 3.4 % (42.2-75.2); HEMATOCRIT 44.6 % (37.0-47.0); HEMOGLOBIN 14.7 g/dl (12.5-16.0); LYMPH # 0.9 K/mm3 (1.2-3.4); MEAN CELL VOLUME 98 fl (80.0-100.0); MEAN CORPUSCULAR HEMOGLOBIN 32 pg (27-31); MEAN CORPUSCULAR HGB CONC 33 g/dl (33.0-37.0); MEAN PLATELET VOLUME 9.7 fl (7.4-10.4); MONO # 1.3 K/mm3 (0.1-0.6); PLATELET COUNT 172 K/mm3 (130-400); RED BLOOD COUNT 4.56 M/mm3 (4.10-5.30); REDCELL DISTRIBUTION WIDTH-CV 12.3 % (11.5-14.5)
[2022-06-18 16:58] LABS: ALBUMIN 3.7 gm/dL (3.5-5.0); BILIRUBIN,TOTAL 1.7 mg/dL (0.2-1.2); CALCIUM 9.7 mg/dL (8.4-10.2); CREATININE, serum 0.72 mg/dL (0.57-1.11); POTASSIUM 3.6 mmol/L (3.5-4.5); TOTAL PROTEIN 7.7 gm/dL (6.2-8.1)
[2022-06-18 17:42] VITALS: TEMP 99.4
[2022-06-18] MEDS ORDERED: CLEOCIN HCL300 MG PO (18:24)
[2022-06-18 18:41] VITALS: BP 108/72; PULSE 102
== END 2022-06-18 18:53 | disposition home or self-care (01) ==
LOC: COL.ER 14:09
PROVIDERS: Nurse Practitioner
DX: J36 Peritonsillar abscess (principal); Z88.0 Allergy status to penicillin; Z88.2 Allergy status to sulfonamides
CPT/HCPCS: J1100; J1170; J7030; Q9967